=== PATIENT | male | born 1960 | race Caucasian/White ===

== ENCOUNTER 2019-03-22 14:17 | Emergency (ER) | payer BC ==
[~2019-03-22 14:17] MED LIST: Iopamidol-370 76% 500 ML 1 ML ONE
[2019-03-22] MEDS ORDERED: Morphine 4 MG/ML VIAL ONE (15:48)
[2019-03-22] MEDS ORDERED: Ondansetron PF 4 MG/2 ML Vial ONE (15:48)
--- NOTE | 2019-03-22 16:51 | CT ---
CT chest with IV contrast CT abdomen and pelvis with IV contrast CT thoracic spine noncontrast CT lumbar spine noncontrast HISTORY: No evidence of pneumothorax or mediastinal hematoma. Solid organs of the abdomen are intact. 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 There is a 0.2 cm calculus within a non dilated calyx of the left kidney. Tiny bilateral renal cysts. Accessory artery to the inferior pole of the right kidney originates from the proximal right common iliac artery. Liver is diffusely hypodense, consistent with hepatic steatosis. Prostate gland is enlarged and heterogeneous, measuring up to 8.0 cm transverse diameter. A 0.5 cm no nspecific nodule is present at the posterior aspect of the superior segment right lower lobe. Mild dependent bibasilar atelectasis. Tiny nonspecific subpleural groundglass nodule at the lateral aspect of the left lung base. Mildly displaced fracture at the posterior aspect of the right 12th rib. There are degenerative changes throughout the thoracolumbar spine with osteophytosis. Central canal s tenosis most pronounced at the L3-4 level. No acute fracture or dislocation are evident. IMPRESSION: Mildly displaced right posterior 12th rib fracture. Tiny nonobstructing left renal calculus. Markedly enlarged prostate gland with heterogeneous density. Please consider urologic evaluation. Other incidental-type findings as detailed above.
== END 2019-03-22 17:35 | disposition home or self-care (01) ==
LOC: ERS 14:17
DX: S22.31XA Fracture of one rib, right side, initial encounter for closed fracture (principal); E11.9 Type 2 diabetes mellitus without complications; I10 Essential (primary) hypertension; W10.9XXA Fall (on) (from) unspecified stairs and steps, initial encounter
CPT/HCPCS: 71260; 74177; 96374; 96375; J2270; J2405; Q9967